=== PATIENT | male | born 1945 | race Caucasian/White ===

== ENCOUNTER → 2016-06-06 | Outpatient (CLI) | payer OTHER | END | disposition home or self-care (01) | LOC: PCVCCLINIC 13:11 | PROVIDERS: ATTEND Internal Medicine Cardiovascular Disease | DX: I48.91 Unspecified atrial fibrillation (principal); E78.00 Pure hypercholesterolemia, unspecified; E11.9 Type 2 diabetes mellitus without complications; I10 Essential (primary) hypertension; I25.10 Atherosclerotic heart disease of native coronary artery without angina pectoris | CPT/HCPCS: 80061; 93005; G0463 ==

== ENCOUNTER → 2016-07-11 | Outpatient (CLI) | payer OTHER | END | disposition home or self-care (01) | LOC: PCVCIMAG 08:36 | PROVIDERS: ATTEND Internal Medicine Cardiovascular Disease | DX: I25.10 Atherosclerotic heart disease of native coronary artery without angina pectoris (principal); I48.91 Unspecified atrial fibrillation; E11.9 Type 2 diabetes mellitus without complications | CPT/HCPCS: 93306 ==

== ENCOUNTER → 2017-01-23 | Outpatient (CLI) | payer OTHER | END | disposition home or self-care (01) | LOC: PCVCCLINIC 09:14 | PROVIDERS: ATTEND Internal Medicine Cardiovascular Disease | DX: I25.10 Atherosclerotic heart disease of native coronary artery without angina pectoris (principal); I48.0 Paroxysmal atrial fibrillation; E78.00 Pure hypercholesterolemia, unspecified; E11.8 Type 2 diabetes mellitus with unspecified complications; I10 Essential (primary) hypertension; Z87.891 Personal history of nicotine dependence; Z79.84 Long term (current) use of oral hypoglycemic drugs; Z79.899 Other long term (current) drug therapy | CPT/HCPCS: 80061; 93005; G0463 ==

== ENCOUNTER → 2017-08-19 | Outpatient (CLI) | payer OTHER | END | disposition home or self-care (01) | LOC: PCVCCLINIC 15:19 | DX: I25.10 Atherosclerotic heart disease of native coronary artery without angina pectoris (principal); I48.0 Paroxysmal atrial fibrillation; I10 Essential (primary) hypertension; E11.8 Type 2 diabetes mellitus with unspecified complications; E78.00 Pure hypercholesterolemia, unspecified; Z87.891 Personal history of nicotine dependence; Z79.899 Other long term (current) drug therapy; Z79.84 Long term (current) use of oral hypoglycemic drugs; Z79.4 Long term (current) use of insulin; Z88.0 Allergy status to penicillin | CPT/HCPCS: 80061; 93005; G0463 ==

== ENCOUNTER → 2018-04-11 | Outpatient (CLI) | payer OTHER | END | disposition home or self-care (01) | LOC: PCVCCLINIC 11:34 | PROVIDERS: ATTEND Internal Medicine Cardiovascular Disease | DX: I48.0 Paroxysmal atrial fibrillation (principal); I25.10 Atherosclerotic heart disease of native coronary artery without angina pectoris; R07.89 Other chest pain; E78.00 Pure hypercholesterolemia, unspecified; I10 Essential (primary) hypertension; I63.211 Cerebral infarction due to unspecified occlusion or stenosis of right vertebral artery; I63.22 Cerebral infarction due to unspecified occlusion or stenosis of basilar artery; E11.8 Type 2 diabetes mellitus with unspecified complications; Z87.891 Personal history of nicotine dependence; Z79.82 Long term (current) use of aspirin | CPT/HCPCS: 36415; 80061; 93005; G0463 ==

== ENCOUNTER → 2018-04-23 | Outpatient (CLI) | payer OTHER ==
[~2018-04-23] MED LIST: REGADENOSON 0.4 MG/5 ML DISP.SYRIN. IV ONE
--- NOTE | 2018-04-23 10:33 | PCVCIMAG ---
APPROVED REPORT Study performed: 04/23/2018 07:32:47 EXAM: Comprehensive 2D, Doppler, and color-flow Echocardiogram Patient Location: Echo lab Status: routine BSA: 2.04 HR: 68 bpmBP: 122/70 mmHg Rhythm: NSR Other Information Study Quality: Good Risk Factors: Cardiac Risk Factors: HTN, Hyperlipidemia, Diabetes (insulin) Indications CVA/TIA Atrial Fibrillation Hypertension/HDD 2D Dimensions IVSd: 10.40 (7-11mm)LVOT Diam: 23.42 (18-24mm) LVDd: 50.02 mm PWd: 10.66 (7-11mm)Ascending Ao: 34.62 (22-36mm) LVDs: 40.24 (25-40mm) Left Atrium: 40.09 (27-40mm) Aortic Root: 27.97 mm LV Single Plane 4CH: 59.12 % LV Single Plane 2CH: 60.01 % Biplane EF: 60.5 % Volumes Left Atrial Volume (Systole) Single Plane 4CH: 40.90 mLSingle Plane 2CH: 60.24 mL LA ESV Index: 26.00 mL/m2 Aortic Valve AoV Peak Tristan.: 1.60 m/s AO Peak Gr.: 10.28 mmHgLVOT Max P.33 mmHg LVOT Max V: 0.91 m/s NINA Vmax: 2.45 cm2 Mitral Valve E/A Ratio: 0.6 MV Decel. Time: 388.02 ms MV E Max Tristan.: 0.58 m/s MV A Tristan.: 0.99 m/s IVRT: 100.35 ms TDI E/Lateral E': 8.29E/Medial E': 9.67 Medial E' Tristan.: 0.06 m/s Lateral E' Tristan.: 0.07 m/s Pulmonary Valve PV Peak Gr.: 1.90 mmHg Pulmonary Vein P Vein S: 0.76 m/sP Vein A: 0.46 m/s P Vein D: 0.47 m/sP Vein A Dur.: 131.5 msec P Vein S/D Ratio: 1.62 Tricuspid Valve TR Peak Tristan.: 2.51 m/s TR Peak Gr.: 25.25 mmHg Left Ventricle The left ventricle is normal size. There is normal LV segmental wall motion. There is normal left ventricular wall thickness. Left ventricular systolic function is normal. The left ventricular ejection fraction is within the normal range. LVEF is 60-65%. Grade I - abnormal relaxation pattern. Right Ventricle The right ventricle is normal size. The right ventricular systolic function is normal. Atria The left atrium size is normal. The right atrium size is normal. Aortic Valve The aortic valve is normal in structure. Trace aortic regurgitation. There is no aortic valvular stenosis. Mitral Valve The mitral valve is normal in structure. Trace mitral regurgitation. No evidence of mitral valve stenosis. Tricuspid Valve The tricuspid valve is normal in structure. Trace tricuspid regurgitation. Pulmonary artery pressure is 33mmHg. Pulmonic Valve The pulmonary valve is normal in structure. Trace pulmonic regurgitation. Great Vessels The aortic root is normal in size. IVC is normal in size and collapses >50% with inspiration. Pericardium There is no pericardial effusion. <Conclusion> The left ventricle is normal size. LVEF is 60-65%. Grade I - abnormal relaxation pattern. The right ventricle is normal size. The left atrium size is normal. Trace aortic regurgitation. Trace mitral regurgitation. Trace tricuspid regurgitation. Pulmonary artery pressure is 33mmHg. The aortic root is normal in size. There is no pericardial effusion.
--- NOTE | 2018-04-23 11:45 | PCVCIMAG ---
APPROVED REPORT Imaging Protocol: Rest Tc-99m/Stress Tc-99m 1 day Study performed: 04/23/2018 08:13:52 Indication: Atrial Fibrillation, Chest pain Patient Location: Out-Patient Stress Nurse: Anastasia Casey RN [place] Tech:Rachana Wernercarlita [facility] Ht: 5 ft 8 in Wt: 195 lbs BSA: 2.02 m2 HR: 71 bpm BP: 152/82 mmHg BMI: 29.6 Rhythm: Normal Sinus Rhythm Medical History Medical History: HTN, Hyperlipidemia, CAD, Diabetic Insulin, Atrial Fibrillation, Former Smoker Medications: Aspirin, Losartan, Diltiazem, Insulin, Xarelty Allergies: PCN Cardiac Risk Factors: Age Pretest Chest Pain Characteristics: No chest pain Exercise History: Physically active Meds Held (24 hrs): Patient held all meds Resting Data Rest SPECT myocardial perfusion imaging was performed in supine position 45 minutes following the intravenous injection of 10.6 mCi of Tc-99m Sestamibi. Time of rest injection: 0800 Date: 04/23/2018 Administration Route: IV Administration Site: Right Arm Pharmacologic Stress Pharmacologic stress test was performed by injecting Regadenoson 0.4 mg IV push over 10-15 seconds immediately followed by the intravenous injection of 30.1 mCi of Tc-99m Sestamibi. Time of stress injection: 0910 Date: 04/23/2018 Administration Route: IV Administration Site: Right Arm Gated Stress SPECT was performed 45 minutes after stress injection. The images were gated to evaluate regional wall motion and calculate left ventricular ejection fraction. Stress Test Details Stress Test: Pharmacologic stress testing performed using 0.4 mg of regadenoson per 5 mL given IV over 10 seconds. Reason for pharmacologic stress test: Atrial Fibrillation. HRMax Heart Rate (APMHR): 146 bpm Resting HR: 71 bpmTarget HR (85% APMHR): 124 bpm Max HR Achieved: 96 bpm % of APMHR: 65 Recovery HR: 89 bpm BP Resting BP: 152/82 mmHg Max BP: 140/81 mmHg Recovery BP: 137/62 mmHg ECG Resting ECG: Normal Sinus Rhythm Stress ECG: Normal Sinus Rhythm Recovery ECG: Normal Sinus Rhythm Clinical Reason for Termination: Completed protocol Stress Symptoms: Dyspnea, Headache Exercise duration: 0 min 55 sec Stress ECG Conclusion ECG: Non-ischemic Study Quality Study: Good Study Data Post stress, the left ventricular ejection was 53%.. SSS: 0 SRS: 0 SDS: 0 TID = 0.97. Perfusion No evidence of stress induced ischemia or prior myocardial infarction. Wall Motion Normal left ventricular size and function with no regional wall motion abnormalities. Nuclear Conclusion No evidence of stress induced ischemia or prior myocardial infarction. Normal left ventricular size and function with no regional wall motion abnormalities. Post stress, the left ventricular ejection was 53%. No change since prior study dated June 2014. Interpreted by: Callum Durbin MD Electronically Approved: 04/23/2018 11:01:48 <Conclusion> ECG: Non-ischemic
== END | disposition home or self-care (01) ==
LOC: PCVCIMAG 07:05
PROVIDERS: ATTEND Internal Medicine Cardiovascular Disease
DX: I48.0 Paroxysmal atrial fibrillation (principal); I25.10 Atherosclerotic heart disease of native coronary artery without angina pectoris; E78.5 Hyperlipidemia, unspecified; I10 Essential (primary) hypertension; E11.9 Type 2 diabetes mellitus without complications; R07.9 Chest pain, unspecified; Z87.891 Personal history of nicotine dependence
CPT/HCPCS: 78452; 93017; 93306; A9500; J2785

== ENCOUNTER → 2018-06-09 | Outpatient (CLI) | payer OTHER ==
--- NOTE | 2018-06-09 13:29 | PCVCIMAG ---
EXAM: ABDOMINAL ULTRASOUND COMPLETE INDICATION: Abdominal pain. Previous episodes of pancreatitis. FINDINGS: Gallbladder: No gallstones. No wall thickening or abnormal pericholecystic fluid. Liver: Normal in size measuring 16.3 cm in length. No focal masses. Bile ducts: No intra or extra hepatic bile duct dilatation. The common bile duct measures 4.9 mm. Pancreas: 11.5 mm rounded echogenic shadowing structure in the pancreatic head/neck region which appears to represent a shadowing stone within the pancreatic duct. There is resulting dilatation of the remainder of the pancreatic duct measuring up to 7.5 mm. Further evaluation with ERCP is suggested if needed clinically. Additionally if needed pancreatic protocol CT examination could be done. Spleen: Normal in size measuring 10.3 cm in greatest dimension. No focal masses. Right kidney: No hydronephrosis. Length measures 11.6 cm. Left kidney: No hydronephrosis. Length measures 11.4 cm. Inferior vena cava: Normal in size where seen. Aorta: Normal in caliber where seen. IMPRESSION: Likelihood 11.5 mm shadowing stone within the pancreatic duct as described with resulting pancreatic duct dilatation up to 7.5 mm. Correlation with previous ERCP suggested. No evidence of stones within the gallbladder. LOC:[id number]
== END | disposition home or self-care (01) ==
LOC: PCVCIMAG 10:21
PROVIDERS: ATTEND Internal Medicine Cardiovascular Disease
DX: R10.10 Upper abdominal pain, unspecified (principal); Z87.19 Personal history of other diseases of the digestive system
CPT/HCPCS: 76700

== ENCOUNTER → 2018-10-30 | Outpatient (CLI) | payer OTHER | END | disposition home or self-care (01) | LOC: PCVCCLINIC 11:00 | PROVIDERS: ATTEND Internal Medicine Cardiovascular Disease | DX: I25.10 Atherosclerotic heart disease of native coronary artery without angina pectoris (principal); E78.00 Pure hypercholesterolemia, unspecified; E11.9 Type 2 diabetes mellitus without complications; I10 Essential (primary) hypertension; I48.0 Paroxysmal atrial fibrillation; D68.59 Other primary thrombophilia; Z88.0 Allergy status to penicillin; Z87.891 Personal history of nicotine dependence; Z79.4 Long term (current) use of insulin; Z79.899 Other long term (current) drug therapy | CPT/HCPCS: 36415; 80061; 93005; G0463 ==